=== PATIENT | male | born 1965 | race Caucasian/White ===

== ENCOUNTER 2016-05-20 05:48 | Inpatient (IN) | payer OTHER ==
[2016-05-20] MEDS ORDERED: NS 1000 ML 1,000 ML ONE ×2 (05:53→07:10)
[2016-05-20] MEDS ORDERED: TORADOL 30 MG VIAL ONE (05:54)
[2016-05-20] MEDS ORDERED: TORADOL 30 MG VIAL IVP ONE (05:56)
[2016-05-20] MEDS ORDERED: NS 1000 ML 1,000 ML IV ONE ×2 (05:56→07:10)
[2016-05-20 05:57] VITALS: BMI 25.0
--- NOTE | 2016-05-20 06:03 | DR.GENAD ---
HPI - PCP Primary Care Physician: mayela - HPI Comment HPI Comment: PATIENT STARTED HAVING RIGHT FLANK PAIN YESTERDAY WITH HEMATURIA. PAIN IMPROVE. SEVERE RIGHT FLANK PAIN STARTED 2 HRS AGO. NO FEVER. NO TRAUMA. HISTORY KIDNEY STONE. LAST EPISODE 5 YEARS AGO. - Complaint/Symptoms Chief Complaint Doctors Comments: RIGHT FLANK PAIN TIMES ONE DAY. Chief Complaint:: rt flank pain since yesterday-hx of kidney stones - Nurses notes reviewed Nurses Notes Review: Yes - Source History Provided: Patient, Family Member - Mode of Arrival Mode of Arrival: Ambulatory - Timing Onset of Chief Complaint: 05/19/16 - Duration Duration: Constant Duration: Hours - Severity Severity: Severe PMH - PMH Past Medical History: Yes Past Medical History: Kidney Stones Past Medical History Comment: kidney stones Past Surgical History: Yes Surgical History: Ortho Surgery Past Surgical History Comment: rt acl repair - Family History History of Family Medical Conditions: No - infectious screening In the last 2 months have you had wt loss of >10#?: NO Have you had fever, night sweats or hemotysis?: No Have you traveled outside the country in the last 6 months?: No Isolation: Standard ROS - Review of Systems Constitutional: No Symptoms Reported Eyes: No Symptoms Reported ENTM: No Symptoms Reported Respiratoy: No Symptoms Reported Cardiovascular: No Symptoms Reported Gastrointestinal/Abdominal: No Symptoms Reported Genitourinary: Hematuria Neurological: No Symptoms Reported Musculoskeletal: Back Pain (RT FLANK), Back (RT FLANK) Integumentary: No Symptoms Reported Hematologic/Lymphatic: No Symptoms Reported Endocrine: No Symptoms Reported All Other Systems: Reviewed and Negative PE - Vital Signs Vitals: Temperature 97.6 F Pulse Rate 51 Respiratory Rate 20 Blood Pressure [Left Arm] 145/95 Blood Pressure 142/86 O2 Sat by Pulse Oximetry 99 - General Limitations: No Limitations General Appearance: Alert - Head Head Exam: Normal Inspection - ENT ENT Exam: Normal External Ear Exam External Ear Exam: Normal External Inspection TM/Canal Exam: Bilateral Normal Nose Exam: Normal Nose Exam Mouth Exam: Normal Inspection Throat Exam: Normal Inspection - Neck Neck Exam: Trachea Midline - Chest Chest Inspection: Symmetric Chest Wall Rise - Respiratory Respiratory Exam: Normal Lung Sounds Bilat Respiratory Exam: Bilateral Clear to Auscultation - Cardiovascular Cardiovascular Exam: Regular Rate, Normal Rhythm, Normal Heart Sounds - Abdominal Exam Abdominal Exam: Normal Bowel Sounds, Soft. negative: Tenderness - Extremities Extremities Exam: Normal Inspection - Back Back Exam: (R) CVA Tenderness - Neurologic Neurological Exam: Alert, Oriented X3 - Psychiatric Psychiatric Exam: Anxious - Skin Skin Exam: Normal Color MDM - Additional Information Additional Information Obtained From: Family - Differential Diagnosis Differential Diagnosis: RIGHT FLANK PAIN, HEMATURIA Course - Treatment Treatment: SEE ORDERS - Consultation Consultation Comments: patient discuss with dr. jeter. he will admit patient. - Education/Counseling Education/Counseling: Patient, Education Educated On: Treatment, Diagnosis ROR - Labs Reviewed Laboratory Results Reviewed?: Yes Result Diagrams: 05/20/16 06:15 05/20/16 06:15 Laboratory: WBC 6.2 X10^3/uL (3.6-10.0) 05/20/16 06:15 RBC 5.03 X10^6/uL (4.7-6.0) 05/20/16 06:15 Hgb 15.2 g/dL (13.5-18.0) 05/20/16 06:15 Hct 43.9 % (42.0-54.0) 05/20/16 06:15 MCV 87.2 fL (80.0-100.0) 05/20/16 06:15 MCH 30.2 pg (27.0-34.0) 05/20/16 06:15 MCHC 34.6 g/dL (33.0-35.0) 05/20/16 06:15 RDW 13.6 % (11.6-16.5) 05/20/16 06:15 Plt Count 225 X10^3/uL (150.0-450.0) 05/20/16 06:15 MPV 6.9 fL (7.4-11.0) L 05/20/16 06:15 Neut % 57.4 % (42.0-75.0) 05/20/16 06:15 Lymph % 30.5 % (21.0-51.0) 05/20/16 06:15 [place] % 9.0 % (0.0-13.0) 05/20/16 06:15 Eos % 2.3 % (0.9-2.9) 05/20/16 06:15 Baso % 0.8 % (0.2-1.0) 05/20/16 06:15 Neut # 3.6 x10^3/uL (2.2-4.8) 05/20/16 06:15 Lymph # 1.9 X10^3/uL (1.3-2.9) 05/20/16 06:15 [place] # 0.6 x10^3/uL (0.3-0.8) 05/20/16 06:15 Eos # 0.1 x10^3/uL (0.0-0.2) 05/20/16 06:15 Baso # 0.1 X10^3/uL (0.0-0.1) 05/20/16 06:15 Absolute Nucleated RBC 0.0 /100WBC 05/20/16 06:15 Sodium 143 mmol/L (136-145) 05/20/16 06:15 Corrected Sodium 143 mmol/L (136-145) 05/20/16 06:15 Potassium 3.9 mmol/L (3.5-5.1) 05/20/16 06:15 Chloride 107 mmol/L (98-107) 05/20/16 06:15 Carbon Dioxide 27.4 mmol/L (21-32) 05/20/16 06:15 BUN 20 mg/dL (7-18) H 05/20/16 06:15 Creatinine 1.21 mg/dL (0.70-1.30) 05/20/16 06:15 Est GFR (MDRD) Af Amer > 60 (>60) 05/20/16 06:15 Est GFR (MDRD) Non-Af > 60 (>60) 05/20/16 06:15 Glucose 116 mg/dL (65-99) H 05/20/16 06:15 Calcium 8.3 mg/dL (8.5-10.1) L 05/20/16 06:15 Corrected Calcium TNP 05/20/16 06:15 Total Bilirubin 0.50 mg/dL (0.2-1.0) 05/20/16 06:15 AST 18 Units/L (15-37) 05/20/16 06:15 ALT 25 Units/L (12-78) 05/20/16 06:15 Alkaline Phosphatase 62 Units/L (46-116) 05/20/16 06:15 Total Protein 6.7 g/dL (6.4-8.2) 05/20/16 06:15 Albumin 3.7 g/dL (3.4-5.0) 05/20/16 06:15 Globulin 3.0 g/dL (2.5-4.5) 05/20/16 06:15 Albumin/Globulin Ratio 1.2 Ratio (1.1-2.1) 05/20/16 06:15 - XRAY XRAY Interpreted by: Radiologist XRAY Findings: report discuss with patient and his family. - Diagnosis Discharge Problem: Right kidney stone, Right flank pain, Hematuria - Discharge Plan Condition: Stable - Follow ups/Referrals - Instructions
[2016-05-20] MEDS ORDERED: ZOFRAN INJ 4 MG VIAL IVP ONE (06:20)
[2016-05-20] MEDS ORDERED: DILAUDID INJ IVP ONE (06:21)
[2016-05-20] MEDS ORDERED: DILAUDID INJ ONE (06:22)
[2016-05-20] MEDS ORDERED: ZOFRAN INJ 4 MG VIAL ONE (06:22)
--- NOTE | 2016-05-20 06:38 | CT ---
EXAM: CT ABDOMEN AND PELVIS WITHOUT CONTRAST INDICATION: Right flank pain COMPARISION: No priors available for comparison TECHNIQUE: Axial CT examination of the abdomen and pelvis was performed without intravenous contrast. Coronal a nd sagittal reconstructions were created using the axial data. FINDINGS: The lung bases are clear. The liver, spleen, pancreas, adrenal glands, and gallbladder are normal. T here is a 4 mm stone in the right UVJ causing mild right hydronephrosis and hydroureter. There is a 1 mm nonobstructing left renal calculus. There is no evidence of biliary ductal dilatation. The aort a and inferior vena cava are normal in caliber. The bowel loops are nonobstructed. No abnormal mass, lymphadenopathy, or fluid collection. Urinary bladder is normal. The regional skeleton is intact. IMPRESSION: There is a 4 mm stone in the right UVJ causing mild right hydronephrosis and hydroureter. There is a nonobstructing left renal calculus. Reported By:
[2016-05-20 06:41] LABS: BASOPHILS # (AUTO) 0.1 X10^3/uL (0.0-0.1); BASOPHILS % (AUTO) 0.8 % (0.2-1.0); EOSINOPHILS # (AUTO) 0.1 x10^3/uL (0.0-0.2); EOSINOPHILS % (AUTO) 2.3 % (0.9-2.9); HEMATOCRIT 43.9 % (42.0-54.0); HEMOGLOBIN 15.2 g/dL (13.5-18.0); LYMPHOCYTES # (AUTO) 1.9 X10^3/uL (1.3-2.9); LYMPHOCYTES % (AUTO) 30.5 % (21.0-51.0); MEAN CORPUSCULAR HEMOGLOBIN 30.2 pg (27.0-34.0); MEAN CORPUSCULAR HGB CONC 34.6 g/dL (33.0-35.0); MEAN CORPUSCULAR VOLUME 87.2 fL (80.0-100.0); MEAN PLATELET VOLUME 6.9 fL (7.4-11.0); MONOCYTES # (AUTO) 0.6 x10^3/uL (0.3-0.8); NEUTROPHILS # (AUTO) 3.6 x10^3/uL (2.2-4.8); NEUTROPHILS % (AUTO) 57.4 % (42.0-75.0); PLATELET COUNT 225 X10^3/uL (150.0-450.0); RED BLOOD COUNT 5.03 X10^6/uL (4.7-6.0); RED CELL DISTRIBUTION WIDTH 13.6 % (11.6-16.5); WHITE BLOOD COUNT 6.2 X10^3/uL (3.6-10.0)
[2016-05-20 06:48] LABS: ALANINE AMINOTRANSFERASE 25 Units/L (12-78); ALBUMIN 3.7 g/dL (3.4-5.0); ALKALINE PHOSPHATASE 62 Units/L (46-116); ASPARTATE AMINO TRANSFERASE 18 Units/L (15-37); BLOOD UREA NITROGEN 20 mg/dL (7-18); CALCIUM 8.3 mg/dL (8.5-10.1); CARBON DIOXIDE 27.4 mmol/L (21-32); CHLORIDE 107 mmol/L (98-107); COR NA(FOR HYPERGLY) 143 mmol/L (136-145); CREATININE 1.21 mg/dL (0.70-1.30); GLUCOSE 116 mg/dL (65-99); SODIUM 143 mmol/L (136-145); TOTAL PROTEIN 6.7 g/dL (6.4-8.2); eGFR BLACK RACES > 60 (>60); eGFR NON BLACK RACES > 60 (>60)
[2016-05-20] MEDS ORDERED: FLOMAX PO ONE (07:10)
[2016-05-20] MEDS ORDERED: NORCO 10/325 TAB ONE (07:19)
[2016-05-20] MEDS ORDERED: NORCO 10/325 TAB PO ONE (07:19)
[2016-05-20] MEDS: NS 1000 ML 1,000 ML IV SCH ×2 (08:10→17:52)
[2016-05-20] MEDS ORDERED: ZOFRAN INJ 4 MG VIAL IVP PRN (08:10)
[2016-05-20] MEDS ORDERED: DILAUDID IVP ONE (08:11)
[2016-05-20] MEDS: DILAUDID INJ IVP PRN ×3 (08:18→16:30)
[2016-05-20 09:20] LABS: BILIRUBIN,URINE NEGATIVE (NEGATIVE); BLOOD/HEMOGLOBIN,URINE 5+ (NEGATIVE); GLUCOSE, URINE NEGATIVE (NEGATIVE); KETONES,URINE NEGATIVE (NEGATIVE); LEUKOCYTE ESTERASE ,URINE NEGATIVE (NEGATIVE); NITRITES,URINE NEGATIVE (NEGATIVE); PROTEIN,URINE NEGATIVE (NEGATIVE); UROBILINOGEN,URINE NORMAL (NORMAL)
[2016-05-20 09:32] LABS: AMORPHOUS SEDIMENT,UR 1+ /HPF (NEGATIVE); APPEARANCE,URINE CLEAR (CLEAR); BACTERIA,URINE NEGATIVE /HPF (NEGATIVE); COLOR,URINE YELLOW (YELLOW); SQUAMOUS EPITHELIAL CELL,UR RARE /HPF (NEGATIVE)
[2016-05-20] MEDS: TORADOL 30 MG VIAL IVP PRN (20:26)
[2016-05-21] MEDS: DILAUDID INJ IVP PRN ×2 (00:11→13:48)
[2016-05-21] MEDS: NS 1000 ML 1,000 ML IV SCH ×3 (01:21→19:38)
[2016-05-21 06:28] LABS: BASOPHILS % (AUTO) 0.5 % (0.2-1.0); EOSINOPHILS # (AUTO) 0.1 x10^3/uL (0.0-0.2); EOSINOPHILS % (AUTO) 2.1 % (0.9-2.9); HEMATOCRIT 40.8 % (42.0-54.0); HEMOGLOBIN 14.2 g/dL (13.5-18.0); LYMPHOCYTES # (AUTO) 1.3 X10^3/uL (1.3-2.9); LYMPHOCYTES % (AUTO) 23.1 % (21.0-51.0); MEAN CORPUSCULAR HEMOGLOBIN 30.3 pg (27.0-34.0); MEAN CORPUSCULAR HGB CONC 34.7 g/dL (33.0-35.0); MEAN CORPUSCULAR VOLUME 87.2 fL (80.0-100.0); MEAN PLATELET VOLUME 7.1 fL (7.4-11.0); MONOCYTES # (AUTO) 0.4 x10^3/uL (0.3-0.8); MONOCYTES % (AUTO) 7.6 % (0.0-13.0); NEUTROPHILS # (AUTO) 3.8 x10^3/uL (2.2-4.8); NEUTROPHILS % (AUTO) 66.7 % (42.0-75.0); PLATELET COUNT 187 X10^3/uL (150.0-450.0); RED BLOOD COUNT 4.68 X10^6/uL (4.7-6.0); RED CELL DISTRIBUTION WIDTH 13.5 % (11.6-16.5); WHITE BLOOD COUNT 5.7 X10^3/uL (3.6-10.0)
[2016-05-21 06:42] LABS: ALANINE AMINOTRANSFERASE 24 Units/L (12-78); ALBUMIN 3.5 g/dL (3.4-5.0); ALKALINE PHOSPHATASE 60 Units/L (46-116); ASPARTATE AMINO TRANSFERASE 19 Units/L (15-37); BLOOD UREA NITROGEN 12 mg/dL (7-18); CALCIUM 8.2 mg/dL (8.5-10.1); CARBON DIOXIDE 29.9 mmol/L (21-32); CHLORIDE 106 mmol/L (98-107); CREATININE 1.09 mg/dL (0.70-1.30); GLUCOSE 93 mg/dL (65-99); SODIUM 142 mmol/L (136-145); TOTAL PROTEIN 6.3 g/dL (6.4-8.2); eGFR BLACK RACES > 60 (>60); eGFR NON BLACK RACES > 60 (>60)
[2016-05-21] MEDS: TORADOL 30 MG VIAL IVP PRN (08:14)
[2016-05-21] MEDS: FLOMAX PO SCH (08:14)
--- NOTE | 2016-05-21 14:25 | CT ---
HISTORY: Abdominal pain, right flank pain Study: CT abdomen and pelvis without contrast Comparison: 05/20/2016 Technique: Multiple axial images of the abdomen and pelvis were obtained without IV contrast. Oral contrast wa s not administered. Dose reduction techniques including Automated Exposure Control (AEC) and adjustm ent of mA and kV were utilized. Findings: The visualized portions of the lung bases are unremarkable. There are small hypodense lesions again seen in the posterior segment of the right hepatic lobe that may represent cysts. The unenhanced sp duglas, pancreas and adrenal glands are within normal limits. There is a stable 4 mm stone at the righ t UVJ causing mild hydronephrosis. There are bilateral nonobstructing renal calculi. No free intraperitoneal air. No evidence of intestinal obstruction or inflammation. Normal appendix. No significant free fluid. Normal urinary bladder. The soft tissues and osseous structures are unremarkable. The vascular structures are unremarkable. No pathologically enlarged lymph nodes are identified. IMPRESSION: 1. No significant change from yesterday's exam. Stable 4 mm stone at the right UVJ causing mild hydr onephrosis. 2. Bilateral nephrolithiasis. Reported By:
--- NOTE | 2016-05-21 16:42 | DR.H&P ---
H&P - History & Physical for Day of: H&P Date: 05/20/16 - Chief Complaint Chief Complaint: RIGHT FLANK PAIN - Allergies Allergies/Adverse Reactions: Allergies Allergy/AdvReac Type Severity Reaction Status Date / Time Prochlorperazine Allergy Unknown Verified 06/22/12 01:54 [From Compazine] - History of Present Illness History of Present Illness: THIS IS A 51 YEAR OLD MALE, WHO IS A PATIENT OF OURS. HE PRESENTS TO THE EMERGENCY ROOM WITH COMPLAINTS OF RIGHT FLANK PAIN WITH HEMATURIA SINCE YESTERDAY. PATIENT HAS A HISTORY SIGNIFICANT FOR RENAL CALCULI. PATIENT RATES PAIN A 10 ON A 1-TO-10 PAIN SCALE AND DESCRIBES PAIN SHARP, RADIATING, AND THROBBING THAT STARTED ONE DAY AGO. PATIENT IS NOTED TO BE VERY ANXIOUS. ASSOCIATED SYMPTOMS INCLUDE BACK PAIN, HEMATURIA, AND RIGHT FLANK PAIN. PATIENT ALSO REPORTS NAUSEA. LABS AND CT OBTAINED. CBC WNL. CMP WNL EXCEPT: BUN 20, GLUCOSE 116, CALCIUM 8.3. URINALYSIS ABNORMALS: OCCULT BLOOD 5+, RBC 1-5, AMORPHOUS SEDIMENT 1+. CT OF ABD/PELVIS REPORTS: 4MM STONE IN THE RIGHT UVJ CAUSING MILD RIGHT HYDRONEPHROSIS AND HYDROURETER; NONOBSTRUCTING LEFT RENAL CALCULUS. WE WILL ADMIT PATIENT FOR FURTHER TREATMENT AND EVALUATION. - Past Medical History Past Medical History: Kidney Stones - Past Surgical History Surgical History: Ortho Surgery Additional Surgical History: Right ACL repair, Ankle Surgery - Family History Family Medical History: denies: Diabetes Mellitus, Cancer, [place], Coronary Artery Disease, Heart Failure, Sudden Cardiac , Hypertension - Social History Does patient currently use any type of tobacco product: No Have you used tobacco products in the last 12 months: No Type of Tobacco Use: None Does any household member use tobacco: No Alcohol Use: None Drug Use: None - Medications Home Medications: Aspirin [ASPIRIN 325 MG *] 1 tab PO DAILY 05/20/16 [History Confirmed 05/20/16] Montelukast Sodium [SINGULAIR TAB 10 MG *] 1 tab PO DAILY 05/20/16 [History Confirmed 05/20/16] - Review of Systems Constitutional: No Symptoms Reported. denies: Chills, Sweats, Weakness, Malaise Eyes: No Symptoms Reported. denies: Pain, Vision Change, Conjunctivae Inflammation, Eyelid Inflammation, Redness ENT: No Symptoms Reported. denies: Nose Pain, Nose Discharge, Nose Congestion, Mouth Pain, Mouth Swelling, Throat Pain, Throat Swelling Respiratory: No Symptoms Reported. denies: Cough, Shortness of Breath, Hemoptysis, SOB with Excertion, Pleuritic Pain, Sputum, Wheezing Cardiovascular: No Symptoms Reported. denies: Chest Pain, Palpitations, Orthopnea, Paroxysmal Noc. Dyspnea, Edema, Light Headedness Gastrointestinal: No Symptoms Reported. denies: Nausea, Vomiting, Abdominal Pain, Diarrhea, Constipation, Melena, Hematochezia Genitourinary: Dysuria, Frequency, Hematuria Musculoskeletal: No Symptoms Reported. denies: Shoulder Pain, Arm Pain, Back Pain, Hand Pain, Leg Pain, Foot Pain, Neck Pain Skin: No Symptoms Reported. denies: Rash, Lesions, Jaundice, Bruising, Wound, Ecchymosis Neurological: No Symptoms Reported. denies: Weakness, Numbness, Incoordination , Change in Speech, Confusion, Seizures - Physical Exam Vital Signs: Temperature 98.9 F Pulse Rate [Radial] 48 Respiratory Rate 20 Blood Pressure [Left Arm] 127/74 O2 Sat by Pulse Oximetry 100 Oriented: Normal, Time, Person, Place Eyes: Normal. negative: Blurred Vision, Diplopia, Discharge, Pain, Redness, Photophobia Ear: Normal. negative: Swelling, Ecchymosis, Hemotypanum, Abrasion, Laceration Nose: Normal. negative: Injected, Discharge, Blood Throat: Normal. negative: Tonsillar Hypertrophy, Red, Exudate Respiratory: Clear Throughout Cardiovascular: Normal. negative: Murmur, Edema : Dysuria, Hematuria, Frequency Auscultation: Bowel Sounds: Decreased. negative: Bruit Palpation: Normal. negative: Spleen Enlarged, Liver Enlarged, Mass Pulsatile Tenderness: Normal. negative: Rebound, Guarding, Rigidity Skin: Normal. negative: Diaphoresis, Wound, Bruising Musculoskeletal: Normal Psychiatric: Normal Mood Description: Calm, Appropriate Affect: Normal Speech Pattern: Clear, Appropriate - Assessment/Plan (1) Intractable pain Status: Acute Plan: ADMIT PATIENT, START IV TORADOL, IV DILAUDID, IV FLUIDS, IV ZOFRAN, FLOMAX , MONITOR. (2) Right flank pain Status: Acute Plan: ABOVE. (3) Right kidney stone Status: Acute Plan: ABOVE. (4) Hematuria Status: Acute Plan: ABOVE.
--- NOTE | 2016-05-21 17:16 | PCM.PROG ---
Progress Note - Progress Note for Day of Date: 05/21/16 - Subjective Subjective: PATIENT CONTINUES TO REPORT RIGHT FLANK PAIN, HOWEVER; HE REPORTS PAIN IS IMPROVED WITH IV PAIN MEDICATION. HE CONTINUES WITH TENDERNESS TO RIGHT FLANK AREA. HE IS STRAINING URINE AND HAS COLLECTED SOME GRAVEL BUT NO STONES ARE NOTED. CBC WNL EXCEPT: HCT 40.8. CMP WNL EXCEPT: CALCIUM 8.2, TOT PROTEIN 6.3. WE WILL OBTAIN A FOLLOW UP CT OF ABD/PELVIS TODAY AND CONTINUE IV FLUIDS WITH IV PAIN MEDICATIONS. WE WILL FOLLOW UP IN AM WITH LABS. - Past Medical Family Social History Past Med/Fam/Surg Hx: No changes since H&P Allergies: Allergies Prochlorperazine [From Compazine] Allergy (Unknown, Verified 06/22/12 01:54) - Review of Systems ROS: No change since H&P - Vital Signs and I&O's Vital Signs: Temperature 97.5 F Pulse Rate [Radial] 52 Respiratory Rate 18 Blood Pressure [Left Arm] 130/76 O2 Sat by Pulse Oximetry 98 Intake and Output: Intake & Output 05/19/16 05/20/16 05/21/16 05/22/16 11:59 11:59 11:59 11:59 Intake Total 4145 1520 Balance 4145 1520 - Physical Exam Oriented: Normal, Time, Person, Place Eyes: Normal. negative: Blurred Vision, Diplopia, Discharge, Pain, Redness, Photophobia Ear: Normal. negative: Swelling, Ecchymosis, Hemotypanum, Abrasion, Laceration Nose: Normal. negative: Injected, Discharge, Blood Throat: Normal. negative: Tonsillar Hypertrophy, Red, Exudate Respiratory: Normal Cardiovascular: Normal. negative: Murmur, Edema : Dysuria, Hematuria, Frequency Auscultation: Bowel Sounds: Decreased. negative: Bruit Palpation: Normal. negative: Spleen Enlarged, Liver Enlarged, Mass Pulsatile Tenderness: Normal. negative: Rebound, Guarding, Rigidity Skin: Normal. negative: Diaphoresis, Wound, Bruising Musculoskeletal: Normal Psychiatric: Normal Mood Description: Calm, Appropriate Affect: Normal Speech Pattern: Clear, Appropriate - Laboratory and Diagnostics Result Diagrams: 05/21/16 05:13 05/21/16 05:13 Labs: Laboratory WBC 5.7 X10^3/uL (3.6-10.0) 05/21/16 05:13 RBC 4.68 X10^6/uL (4.7-6.0) L 05/21/16 05:13 Hgb 14.2 g/dL (13.5-18.0) 05/21/16 05:13 Hct 40.8 % (42.0-54.0) L 05/21/16 05:13 MCV 87.2 fL (80.0-100.0) 05/21/16 05:13 MCH 30.3 pg (27.0-34.0) 05/21/16 05:13 MCHC 34.7 g/dL (33.0-35.0) 05/21/16 05:13 RDW 13.5 % (11.6-16.5) 05/21/16 05:13 Plt Count 187 X10^3/uL (150.0-450.0) 05/21/16 05:13 MPV 7.1 fL (7.4-11.0) L 05/21/16 05:13 Neut % 66.7 % (42.0-75.0) 05/21/16 05:13 Lymph % 23.1 % (21.0-51.0) 05/21/16 05:13 [place] % 7.6 % (0.0-13.0) 05/21/16 05:13 Eos % 2.1 % (0.9-2.9) 05/21/16 05:13 Baso % 0.5 % (0.2-1.0) 05/21/16 05:13 Neut # 3.8 x10^3/uL (2.2-4.8) 05/21/16 05:13 Lymph # 1.3 X10^3/uL (1.3-2.9) 05/21/16 05:13 [place] # 0.4 x10^3/uL (0.3-0.8) 05/21/16 05:13 Eos # 0.1 x10^3/uL (0.0-0.2) 05/21/16 05:13 Baso # 0.0 X10^3/uL (0.0-0.1) 05/21/16 05:13 Absolute Nucleated RBC 0.0 /100WBC 05/21/16 05:13 Sodium 142 mmol/L (136-145) 05/21/16 05:13 Corrected Sodium TNP 05/21/16 05:13 Potassium 4.2 mmol/L (3.5-5.1) 05/21/16 05:13 Chloride 106 mmol/L (98-107) 05/21/16 05:13 Carbon Dioxide 29.9 mmol/L (21-32) 05/21/16 05:13 BUN 12 mg/dL (7-18) 05/21/16 05:13 Creatinine 1.09 mg/dL (0.70-1.30) 05/21/16 05:13 Est GFR (MDRD) Af Amer > 60 (>60) 05/21/16 05:13 Est GFR (MDRD) Non-Af > 60 (>60) 05/21/16 05:13 Glucose 93 mg/dL (65-99) 05/21/16 05:13 Calcium 8.2 mg/dL (8.5-10.1) L 05/21/16 05:13 Corrected Calcium TNP 05/21/16 05:13 Total Bilirubin 0.30 mg/dL (0.2-1.0) 05/21/16 05:13 AST 19 Units/L (15-37) 05/21/16 05:13 ALT 24 Units/L (12-78) 05/21/16 05:13 Alkaline Phosphatase 60 Units/L (46-116) 05/21/16 05:13 Total Protein 6.3 g/dL (6.4-8.2) L 05/21/16 05:13 Albumin 3.5 g/dL (3.4-5.0) 05/21/16 05:13 Globulin 2.8 g/dL (2.5-4.5) 05/21/16 05:13 Albumin/Globulin Ratio 1.3 Ratio (1.1-2.1) 05/21/16 05:13 Specimen Type Clean catch urine 05/20/16 08:51 Urine Color Yellow (YELLOW) 05/20/16 08:51 Urine Appearance Clear (CLEAR) 05/20/16 08:51 Urine pH 5.0 (5.0 - 8.0) 05/20/16 08:51 Ur Specific [place] 1.015 (1.000-1.030) 05/20/16 08:51 Urine Protein Negative (NEGATIVE) 05/20/16 08:51 Urine Glucose (UA) Negative (NEGATIVE) 05/20/16 08:51 Urine Ketones Negative (NEGATIVE) 05/20/16 08:51 Urine Occult Blood 5+ (NEGATIVE) 05/20/16 08:51 Urine Nitrite Negative (NEGATIVE) 05/20/16 08:51 Urine Bilirubin Negative (NEGATIVE) 05/20/16 08:51 Urine Urobilinogen Normal (NORMAL) 05/20/16 08:51 Ur Leukocyte Esterase Negative (NEGATIVE) 05/20/16 08:51 Urine RBC 1-5 /HPF (NEGATIVE) 05/20/16 08:51 Urine WBC None seen /HPF (NEGATIVE) 05/20/16 08:51 Ur Squamous Epith Cells Rare /HPF (NEGATIVE) 05/20/16 08:51 Amorphous Sediment 1+ /HPF (NEGATIVE) 05/20/16 08:51 Urine Bacteria Negative /HPF (NEGATIVE) 05/20/16 08:51 Ur Culture Indicated? No/not indicated 05/20/16 08:51 - Plan (1) Intractable pain Status: Acute Plan: CONTINUE IV TORADOL, IV DILAUDID, IV FLUIDS, IV ZOFRAN, FLOMAX, MONITOR. (2) Right flank pain Status: Acute Plan: ABOVE. (3) Right kidney stone Status: Acute Plan: ABOVE. (4) Hematuria Status: Acute Plan: ABOVE.
[2016-05-22] MEDS: NS 1000 ML 1,000 ML IV SCH ×2 (00:02→09:23)
[2016-05-22 05:21] LABS: BASOPHILS % (AUTO) 0.5 % (0.2-1.0); EOSINOPHILS # (AUTO) 0.2 x10^3/uL (0.0-0.2); HEMATOCRIT 41.1 % (42.0-54.0); LYMPHOCYTES # (AUTO) 1.5 X10^3/uL (1.3-2.9); LYMPHOCYTES % (AUTO) 22.5 % (21.0-51.0); MEAN CORPUSCULAR HEMOGLOBIN 30.1 pg (27.0-34.0); MEAN CORPUSCULAR HGB CONC 34.2 g/dL (33.0-35.0); MEAN CORPUSCULAR VOLUME 87.9 fL (80.0-100.0); MEAN PLATELET VOLUME 7.3 fL (7.4-11.0); MONOCYTES # (AUTO) 0.5 x10^3/uL (0.3-0.8); MONOCYTES % (AUTO) 8.1 % (0.0-13.0); NEUTROPHILS # (AUTO) 4.3 x10^3/uL (2.2-4.8); NEUTROPHILS % (AUTO) 65.9 % (42.0-75.0); PLATELET COUNT 180 X10^3/uL (150.0-450.0); RED BLOOD COUNT 4.67 X10^6/uL (4.7-6.0); RED CELL DISTRIBUTION WIDTH 13.7 % (11.6-16.5); WHITE BLOOD COUNT 6.6 X10^3/uL (3.6-10.0)
[2016-05-22 05:30] LABS: ALANINE AMINOTRANSFERASE 21 Units/L (12-78); ALBUMIN 3.4 g/dL (3.4-5.0); ALKALINE PHOSPHATASE 61 Units/L (46-116); ASPARTATE AMINO TRANSFERASE 15 Units/L (15-37); BLOOD UREA NITROGEN 14 mg/dL (7-18); CALCIUM 8.3 mg/dL (8.5-10.1); CARBON DIOXIDE 30.2 mmol/L (21-32); CHLORIDE 108 mmol/L (98-107); CREATININE 1.08 mg/dL (0.70-1.30); GLUCOSE 106 mg/dL (65-99); SODIUM 143 mmol/L (136-145); TOTAL PROTEIN 6.2 g/dL (6.4-8.2); eGFR BLACK RACES > 60 (>60); eGFR NON BLACK RACES > 60 (>60)
[2016-05-22] MEDS: TORADOL 30 MG VIAL IVP PRN (08:30)
[2016-05-22] MEDS: FLOMAX PO SCH (09:23)
[2016-05-22] MEDS: PROCARDIA XL PO SCH (10:30)
[2016-05-23] MEDS: NS 1000 ML 1,000 ML IV SCH ×4 (00:47→18:11)
[2016-05-23 06:10] LABS: ALANINE AMINOTRANSFERASE 17 Units/L (12-78); ALBUMIN 3.5 g/dL (3.4-5.0); ALKALINE PHOSPHATASE 69 Units/L (46-116); ASPARTATE AMINO TRANSFERASE 17 Units/L (15-37); BLOOD UREA NITROGEN 15 mg/dL (7-18); CALCIUM 8.6 mg/dL (8.5-10.1); CARBON DIOXIDE 28.3 mmol/L (21-32); CHLORIDE 106 mmol/L (98-107); COR NA(FOR HYPERGLY) 140 mmol/L (136-145); CREATININE 0.91 mg/dL (0.70-1.30); GLUCOSE 116 mg/dL (65-99); SODIUM 140 mmol/L (136-145); TOTAL PROTEIN 6.5 g/dL (6.4-8.2); eGFR BLACK RACES > 60 (>60); eGFR NON BLACK RACES > 60 (>60)
[2016-05-23 06:23] LABS: BASOPHILS # (AUTO) 0.1 X10^3/uL (0.0-0.1); BASOPHILS % (AUTO) 0.7 % (0.2-1.0); EOSINOPHILS # (AUTO) 0.2 x10^3/uL (0.0-0.2); EOSINOPHILS % (AUTO) 3.1 % (0.9-2.9); HEMATOCRIT 41.6 % (42.0-54.0); HEMOGLOBIN 14.4 g/dL (13.5-18.0); LYMPHOCYTES # (AUTO) 1.5 X10^3/uL (1.3-2.9); LYMPHOCYTES % (AUTO) 21.1 % (21.0-51.0); MEAN CORPUSCULAR HEMOGLOBIN 30.1 pg (27.0-34.0); MEAN CORPUSCULAR HGB CONC 34.6 g/dL (33.0-35.0); MEAN PLATELET VOLUME 7.3 fL (7.4-11.0); MONOCYTES # (AUTO) 0.6 x10^3/uL (0.3-0.8); MONOCYTES % (AUTO) 8.9 % (0.0-13.0); NEUTROPHILS # (AUTO) 4.6 x10^3/uL (2.2-4.8); NEUTROPHILS % (AUTO) 66.2 % (42.0-75.0); PLATELET COUNT 190 X10^3/uL (150.0-450.0); RED BLOOD COUNT 4.78 X10^6/uL (4.7-6.0); RED CELL DISTRIBUTION WIDTH 13.6 % (11.6-16.5)
[2016-05-23] MEDS: TORADOL 30 MG VIAL IVP PRN (07:37)
[2016-05-23] MEDS: FLOMAX PO SCH (10:16)
[2016-05-23] MEDS: PROCARDIA XL PO SCH (10:17)
[2016-05-23] MEDS: DILAUDID INJ IVP PRN ×2 (15:54)
[2016-05-24 03:44] LABS: BASOPHILS # (AUTO) 0.1 X10^3/uL (0.0-0.1); BASOPHILS % (AUTO) 1.1 % (0.2-1.0); EOSINOPHILS # (AUTO) 0.2 x10^3/uL (0.0-0.2); HEMATOCRIT 43.1 % (42.0-54.0); HEMOGLOBIN 14.6 g/dL (13.5-18.0); LYMPHOCYTES # (AUTO) 1.4 X10^3/uL (1.3-2.9); LYMPHOCYTES % (AUTO) 21.2 % (21.0-51.0); MEAN CORPUSCULAR VOLUME 88.4 fL (80.0-100.0); MEAN PLATELET VOLUME 7.3 fL (7.4-11.0); MONOCYTES # (AUTO) 0.5 x10^3/uL (0.3-0.8); NEUTROPHILS # (AUTO) 4.5 x10^3/uL (2.2-4.8); NEUTROPHILS % (AUTO) 66.7 % (42.0-75.0); PLATELET COUNT 188 X10^3/uL (150.0-450.0); RED BLOOD COUNT 4.87 X10^6/uL (4.7-6.0); RED CELL DISTRIBUTION WIDTH 13.8 % (11.6-16.5); WHITE BLOOD COUNT 6.7 X10^3/uL (3.6-10.0)
[2016-05-24 03:59] LABS: ALANINE AMINOTRANSFERASE 22 Units/L (12-78); ALBUMIN 3.4 g/dL (3.4-5.0); ALKALINE PHOSPHATASE 66 Units/L (46-116); ASPARTATE AMINO TRANSFERASE 17 Units/L (15-37); BLOOD UREA NITROGEN 13 mg/dL (7-18); CALCIUM 8.3 mg/dL (8.5-10.1); CARBON DIOXIDE 28.6 mmol/L (21-32); CHLORIDE 107 mmol/L (98-107); CREATININE 0.98 mg/dL (0.70-1.30); GLUCOSE 109 mg/dL (65-99); SODIUM 142 mmol/L (136-145); TOTAL PROTEIN 6.3 g/dL (6.4-8.2); eGFR BLACK RACES > 60 (>60); eGFR NON BLACK RACES > 60 (>60)
[2016-05-24] MEDS: TORADOL 30 MG VIAL IVP PRN (05:40)
[2016-05-24] MEDS: NS 1000 ML 1,000 ML IV SCH ×2 (05:42→10:06)
--- NOTE | 2016-05-24 06:34 | CT ---
HISTORY: Right flank pain, right ureteral calculus Study: CT abdomen pelvis without contrast Comparison: May 21, 2016, May 21, 2015 Technique: Axial non contrast images with coronal and sagittal reformats. Dose reduction procedures were used with MA/kv adjusted for body size. Findings: The lung bases remain clear. The liver, spleen, adrenal glands, and pancreas are within normal limit s to the limitations of an unenhanced examination. Benign hepatic cysts are present. No opaque stone s are visible within the gallbladder. The left kidney is unobstructed. There is a 2 millimeter nonob structing left upper pole renal calculus present. No ureteral calculus is identified. There is minim al right-sided hydroureteronephrosis proximal to a 5 millimeter minimally obstructing distal right u reteral calculus located at the right ureterovesical junction and unchanged when compared with the p rior examination. A 1.5 millimeter nonobstructing right lower pole renal calculus is present. No int raperitoneal or retroperitoneal lymphadenopathy of significance is identified. There are no findings suggestive of diverticulitis or colitis. Examination of the pelvis demonstrated no evidence for pel dayana masses, pelvic fluid, or pelvic lymphadenopathy. No significant skeletal abnormality is identifi ed. IMPRESSION: No significant change from the prior examination Reported By:
[2016-05-24] MEDS: FLOMAX PO SCH (09:58)
[2016-05-24] MEDS: PROCARDIA XL PO SCH (09:59)
[2016-05-24] MEDS: DILAUDID INJ IVP PRN (10:07)
[2016-05-24 13:07] VITALS: BP 142/77
== END 2016-05-24 12:45 | disposition home or self-care (01) | DRG 694 ==
LOC: ER 05:55 → OBS 09:00
PROVIDERS: ADMIT Internal Medicine; ATTEND Internal Medicine
DX: N20.0 Calculus of kidney (principal); N13.39 Other hydronephrosis; N13.4 Hydroureter; R31.9 Hematuria, unspecified; R10.84 Generalized abdominal pain; Z87.442 Personal history of urinary calculi
CPT/HCPCS: 36415; 74176; 80053; 81001; 85025; 94760; 96365; 96367; 96374; 96375; 99284; A4222; J1170; J1885; J2405

== ENCOUNTER 2016-06-08 13:41 | Observation (INO) | payer OTHER ==
[2016-06-08] MEDS ORDERED: PHENERGAN INJ 25 MG ONE (13:43)
[2016-06-08] MEDS ORDERED: DILAUDID INJ ONE ×2 (13:43→14:23)
[2016-06-08] MEDS ORDERED: PHENERGAN INJ 25 MG IV ONE (13:44)
[2016-06-08] MEDS ORDERED: DILAUDID INJ IVP ONE ×2 (13:44→14:27)
[2016-06-08] MEDS ORDERED: NS 1000 ML 1,000 ML ONE (13:45)
[2016-06-08] MEDS ORDERED: NS 1000 ML 1,000 ML IV ONE (13:45)
--- NOTE | 2016-06-08 13:46 | DR.GENAD ---
HPI - PCP Primary Care Physician: JOE - HPI Comment HPI Comment: PATIENT HAVE HISTORY KIDNEY STONE. POST RECENT LITHOTRIPSY. SUDDEN ONSET OF LEFT FLANK PAIN WITH NAUSEA. NO FEVER OR DYSURIA. - Complaint/Symptoms Chief Complaint Doctors Comments: LEFT FLANK PAIN LESS THAN ONE HOUR AGO. Chief Complaint:: PT C/O LT FLANK PAIN THAT STARTED 10 MINS AGO. - Nurses notes reviewed Nurses Notes Review: Yes - Source History Provided: Patient - Mode of Arrival Mode of Arrival: Ambulatory - Timing Onset of Chief Complaint: 06/08/16 Came on: Suddenly - Duration Duration: Constant Duration: Minutes - Severity Severity: Moderate PMH - PMH Past Medical History: Yes Past Medical History: Kidney Stones Past Surgical History: Yes Surgical History: Ortho Surgery, Lithotripsy - Family History History of Family Medical Conditions: No - Social History Does any household member use tobacco: No Alcohol Use: None Do you use any recreational Drugs:: No Lives With: Family Lives Where: Home - infectious screening In the last 2 months have you had wt loss of >10#?: NO Have you had fever, night sweats or hemotysis?: No Have you traveled outside the country in the last 6 months?: No Isolation: Standard ROS - Review of Systems Constitutional: No Symptoms Reported Eyes: No Symptoms Reported ENTM: No Symptoms Reported Respiratoy: No Symptoms Reported Cardiovascular: No Symptoms Reported Gastrointestinal/Abdominal: Nausea Genitourinary: No Symptoms Reported Neurological: No Symptoms Reported Musculoskeletal: Back Pain, Other (LT FLANK PAIN) Integumentary: No Symptoms Reported Hematologic/Lymphatic: No Symptoms Reported Endocrine: No Symptoms Reported All Other Systems: Reviewed and Negative PE - Vital Signs Vitals: Temperature 97.8 F Pulse Rate 51 Respiratory Rate 20 Blood Pressure [Right Arm] 142/77 Blood Pressure [Left Arm] 117/65 Blood Pressure 141/93 O2 Sat by Pulse Oximetry 98 - General Limitations: No Limitations General Appearance: Alert - Head Head Exam: Normal Inspection - Eyes Eye exam: Normal Appearance - ENT ENT Exam: Normal External Ear Exam External Ear Exam: Normal External Inspection TM/Canal Exam: Bilateral Normal Nose Exam: Normal Nose Exam Mouth Exam: Normal Inspection Throat Exam: Normal Inspection - Neck Neck Exam: Normal Inspection - Chest Chest Inspection: Symmetric Chest Wall Rise - Respiratory Respiratory Exam: Normal Lung Sounds Bilat Respiratory Exam: Bilateral Clear to Auscultation - Cardiovascular Cardiovascular Exam: Regular Rate, Normal Rhythm, Normal Heart Sounds - Abdominal Exam Abdominal Exam: Normal Bowel Sounds, Soft. negative: Tenderness - Extremities Extremities Exam: Normal Inspection - Back Back Exam: Normal Inspection, (L) CVA Tenderness - Neurologic Neurological Exam: Alert, Oriented X3 - Psychiatric Psychiatric Exam: Anxious - Skin Skin Exam: Normal Color MDM - Additional Information Additional Information Obtained From: Family - Differential Diagnosis Differential Diagnosis: KIDNEY STONE, LEFT FLANK PAIN Course - Treatment Treatment: SEE ORDERS. - Consultation Consultation Comments: DISCUSS PATIENT WITH DR. DIAZ. HE WILL ADMIT PATIENT. - Education/Counseling Education/Counseling: Patient, Family, Education Educated On: Treatment, Diagnosis ROR - Labs Reviewed Laboratory Results Reviewed?: Yes Result Diagrams: 06/09/16 04:30 06/09/16 04:30 Laboratory: WBC 7.2 X10^3/uL (3.6-10.0) 06/08/16 15:00 RBC 4.85 X10^6/uL (4.7-6.0) 06/08/16 15:00 Hgb 14.5 g/dL (13.5-18.0) 06/08/16 15:00 Hct 43.0 % (42.0-54.0) 06/08/16 15:00 MCV 88.7 fL (80.0-100.0) 06/08/16 15:00 MCH 29.9 pg (27.0-34.0) 06/08/16 15:00 MCHC 33.8 g/dL (33.0-35.0) 06/08/16 15:00 RDW 13.6 % (11.6-16.5) 06/08/16 15:00 Plt Count 220 X10^3/uL (150.0-450.0) 06/08/16 15:00 MPV 7.2 fL (7.4-11.0) L 06/08/16 15:00 Neut % 72.1 % (42.0-75.0) 06/08/16 15:00 Lymph % 17.4 % (21.0-51.0) L 06/08/16 15:00 Barbour % 7.9 % (0.0-13.0) 06/08/16 15:00 Eos % 2.1 % (0.9-2.9) 06/08/16 15:00 Baso % 0.5 % (0.2-1.0) 06/08/16 15:00 Neut # 5.2 x10^3/uL (2.2-4.8) H 06/08/16 15:00 Lymph # 1.3 X10^3/uL (1.3-2.9) 06/08/16 15:00 Barbour # 0.6 x10^3/uL (0.3-0.8) 06/08/16 15:00 Eos # 0.2 x10^3/uL (0.0-0.2) 06/08/16 15:00 Baso # 0.0 X10^3/uL (0.0-0.1) 06/08/16 15:00 Absolute Nucleated RBC 0.0 /100WBC 06/08/16 15:00 Sodium 143 mmol/L (136-145) 06/08/16 15:00 Corrected Sodium TNP 06/08/16 15:00 Potassium 3.9 mmol/L (3.5-5.1) 06/08/16 15:00 Chloride 106 mmol/L (98-107) 06/08/16 15:00 Carbon Dioxide 30.8 mmol/L (21-32) 06/08/16 15:00 BUN 26 mg/dL (7-18) H 06/08/16 15:00 Creatinine 1.22 mg/dL (0.70-1.30) 06/08/16 15:00 Est GFR (MDRD) Af Amer > 60 (>60) 06/08/16 15:00 Est GFR (MDRD) Non-Af > 60 (>60) 06/08/16 15:00 Glucose 104 mg/dL (65-99) H 06/08/16 15:00 Calcium 8.1 mg/dL (8.5-10.1) L 06/08/16 15:00 Corrected Calcium TNP 06/08/16 15:00 Total Bilirubin 0.30 mg/dL (0.2-1.0) 06/08/16 15:00 AST 19 Units/L (15-37) 06/08/16 15:00 ALT 26 Units/L (12-78) 06/08/16 15:00 Alkaline Phosphatase 65 Units/L (46-116) 06/08/16 15:00 Total Protein 6.8 g/dL (6.4-8.2) 06/08/16 15:00 Albumin 3.7 g/dL (3.4-5.0) 06/08/16 15:00 Globulin 3.1 g/dL (2.5-4.5) 06/08/16 15:00 Albumin/Globulin Ratio 1.2 Ratio (1.1-2.1) 06/08/16 15:00 Specimen Type Clean catch urine 06/08/16 15:28 Urine Color Dark yellow (YELLOW) 06/08/16 15:28 Urine Appearance Turbid (CLEAR) 06/08/16 15:28 Urine pH 6.0 (5.0 - 8.0) 06/08/16 15:28 Ur Specific Verner 1.025 (1.000-1.030) 06/08/16 15:28 Urine Protein 2+ (NEGATIVE) 06/08/16 15:28 Urine Glucose (UA) Negative (NEGATIVE) 06/08/16 15:28 Urine Ketones Negative (NEGATIVE) 06/08/16 15:28 Urine Occult Blood 5+ (NEGATIVE) 06/08/16 15:28 Urine Nitrite Negative (NEGATIVE) 06/08/16 15:28 Urine Bilirubin Negative (NEGATIVE) 06/08/16 15:28 Urine Urobilinogen Normal (NORMAL) 06/08/16 15:28 Ur Leukocyte Esterase 1+ (NEGATIVE) 06/08/16 15:28 Urine RBC Tntc /HPF (NEGATIVE) 06/08/16 15:28 Urine WBC 1 - 4 /HPF (NEGATIVE) 06/08/16 15:28 Ur Squamous Epith Cells Few /HPF (NEGATIVE) 06/08/16 15:28 Urine Bacteria Trace /HPF (NEGATIVE) 06/08/16 15:28 Urine Mucus Moderate /HPF (NEGATIVE) 06/08/16 15:28 Ur Culture Indicated? No/not indicated 06/08/16 15:28 - XRAY XRAY Interpreted by: Radiologist XRAY Findings: REPORT DISCUSS WITH PATIENT AND HIS . - Diagnosis Discharge Problem: Left flank pain, Kidney stone, Intractable pain - Discharge Plan Disposition: ADMITTED INPATIENT Condition: Stable - Follow ups/Referrals - Instructions
[2016-06-08] MEDS ORDERED: ZOFRAN INJ 4 MG VIAL ONE (14:09)
[2016-06-08] MEDS ORDERED: TORADOL 30 MG VIAL ONE (14:09)
[2016-06-08] MEDS ORDERED: ZOFRAN INJ 4 MG VIAL IVP ONE (14:11)
[2016-06-08] MEDS ORDERED: TORADOL 30 MG VIAL IVP ONE (14:11)
[2016-06-08] MEDS ORDERED: FLOMAX PO ONE (14:44)
[2016-06-08 15:23] LABS: BASOPHILS % (AUTO) 0.5 % (0.2-1.0); EOSINOPHILS # (AUTO) 0.2 x10^3/uL (0.0-0.2); EOSINOPHILS % (AUTO) 2.1 % (0.9-2.9); HEMOGLOBIN 14.5 g/dL (13.5-18.0); LYMPHOCYTES # (AUTO) 1.3 X10^3/uL (1.3-2.9); LYMPHOCYTES % (AUTO) 17.4 % (21.0-51.0); MEAN CORPUSCULAR HEMOGLOBIN 29.9 pg (27.0-34.0); MEAN CORPUSCULAR HGB CONC 33.8 g/dL (33.0-35.0); MEAN CORPUSCULAR VOLUME 88.7 fL (80.0-100.0); MEAN PLATELET VOLUME 7.2 fL (7.4-11.0); MONOCYTES # (AUTO) 0.6 x10^3/uL (0.3-0.8); MONOCYTES % (AUTO) 7.9 % (0.0-13.0); NEUTROPHILS # (AUTO) 5.2 x10^3/uL (2.2-4.8); NEUTROPHILS % (AUTO) 72.1 % (42.0-75.0); PLATELET COUNT 220 X10^3/uL (150.0-450.0); RED BLOOD COUNT 4.85 X10^6/uL (4.7-6.0); RED CELL DISTRIBUTION WIDTH 13.6 % (11.6-16.5); WHITE BLOOD COUNT 7.2 X10^3/uL (3.6-10.0)
[2016-06-08 15:32] LABS: ALANINE AMINOTRANSFERASE 26 Units/L (12-78); ALBUMIN 3.7 g/dL (3.4-5.0); ALKALINE PHOSPHATASE 65 Units/L (46-116); ASPARTATE AMINO TRANSFERASE 19 Units/L (15-37); BLOOD UREA NITROGEN 26 mg/dL (7-18); CALCIUM 8.1 mg/dL (8.5-10.1); CARBON DIOXIDE 30.8 mmol/L (21-32); CHLORIDE 106 mmol/L (98-107); CREATININE 1.22 mg/dL (0.70-1.30); GLUCOSE 104 mg/dL (65-99); SODIUM 143 mmol/L (136-145); TOTAL PROTEIN 6.8 g/dL (6.4-8.2); eGFR BLACK RACES > 60 (>60); eGFR NON BLACK RACES > 60 (>60)
--- NOTE | 2016-06-08 15:33 | CT ---
CT OF THE ABDOMEN AND PELVIS WITHOUT CONTRAST HISTORY: Right flank pain Comparison: 05/24/2016 Technique: Multiple axial images of the abdomen and pelvis were obtained from the lung bases to the pubic symph ysis without the administration of IV contrast. Dose reduction techniques including Automated Expos ure Control (AEC) and adjustment of mA and kV were utlized. Findings: The heart is normal in size. There is no pericardial effusion. Lung bases are clear without focal co nsolidation, pleural effusion or pneumothorax. The sensitivity for focal lesion detection within the solid abdominal viscera is diminished without the use of IV contrast. Liver and spleen are normal in size, and contour. Simple hepatic cyst again seen. No ductal dilitati on. Gallbladder is present. No calcified gallstones or gallbladder wall thickening. The pancreas is unremarkable. Adrenal glands are normal. Kidneys are normal in contour without hydronephrosis or nep hrolithiasis. Previously noted right UVJ stone is no longer present. No bowel obstruction or inflammation. No abnormal appearing mesenteric or retroperitoneal lymph nod es. No free fluid or fluid collections. The bladder is normal in appearance. Prostate not enlarged in. No free fluid or abnormal pelvic lymp h nodes. No aggressive osseous lesions. IMPRESSION: 1. Previously identified right UVJ stone is not seen on this examination. Reported By:
[2016-06-08 15:40] LABS: BILIRUBIN,URINE NEGATIVE (NEGATIVE); BLOOD/HEMOGLOBIN,URINE 5+ (NEGATIVE); GLUCOSE, URINE NEGATIVE (NEGATIVE); KETONES,URINE NEGATIVE (NEGATIVE); LEUKOCYTE ESTERASE ,URINE 1+ (NEGATIVE); NITRITES,URINE NEGATIVE (NEGATIVE); PROTEIN,URINE 2+ (NEGATIVE); UROBILINOGEN,URINE NORMAL (NORMAL)
[2016-06-08 15:50] LABS: APPEARANCE,URINE TURBID (CLEAR); COLOR,URINE DARK YELLOW (YELLOW)
[2016-06-08 15:51] LABS: BACTERIA,URINE TRACE /HPF (NEGATIVE); MUCUS,URINE MODERATE /HPF (NEGATIVE); RBC,URINE TNTC /HPF (NEGATIVE); SQUAMOUS EPITHELIAL CELL,UR FEW /HPF (NEGATIVE)
[2016-06-08] MEDS: DILAUDID INJ IVP PRN ×2 (17:22→21:15)
[2016-06-08] MEDS ORDERED: PHENERGAN INJ 25 MG IV PRN (17:41)
[2016-06-08] MEDS ORDERED: ZOFRAN INJ 4 MG VIAL IVP PRN (17:41)
[2016-06-08 19:59] VITALS: BMI 25.4
[2016-06-08] MEDS: NS 1000 ML 1,000 ML IV SCH ×2 (21:20→23:23)
[2016-06-08] MEDS: TORADOL 30 MG VIAL IVP PRN (23:25)
[2016-06-09] MEDS: DILAUDID INJ IVP PRN ×3 (01:12→11:47)
[2016-06-09] MEDS: NS 1000 ML 1,000 ML IV SCH ×2 (02:05→10:28)
[2016-06-09 05:18] LABS: BASOPHILS % (AUTO) 0.5 % (0.2-1.0); EOSINOPHILS # (AUTO) 0.1 x10^3/uL (0.0-0.2); EOSINOPHILS % (AUTO) 1.7 % (0.9-2.9); HEMATOCRIT 40.1 % (42.0-54.0); HEMOGLOBIN 13.6 g/dL (13.5-18.0); LYMPHOCYTES # (AUTO) 1.4 X10^3/uL (1.3-2.9); LYMPHOCYTES % (AUTO) 18.3 % (21.0-51.0); MEAN CORPUSCULAR HEMOGLOBIN 30.1 pg (27.0-34.0); MEAN CORPUSCULAR VOLUME 88.5 fL (80.0-100.0); MEAN PLATELET VOLUME 7.4 fL (7.4-11.0); MONOCYTES # (AUTO) 0.7 x10^3/uL (0.3-0.8); MONOCYTES % (AUTO) 9.1 % (0.0-13.0); NEUTROPHILS # (AUTO) 5.4 x10^3/uL (2.2-4.8); NEUTROPHILS % (AUTO) 70.4 % (42.0-75.0); PLATELET COUNT 189 X10^3/uL (150.0-450.0); RED BLOOD COUNT 4.53 X10^6/uL (4.7-6.0); RED CELL DISTRIBUTION WIDTH 13.3 % (11.6-16.5); WHITE BLOOD COUNT 7.6 X10^3/uL (3.6-10.0)
[2016-06-09 05:34] LABS: ALANINE AMINOTRANSFERASE 26 Units/L (12-78); ALBUMIN 3.4 g/dL (3.4-5.0); ALKALINE PHOSPHATASE 63 Units/L (46-116); ASPARTATE AMINO TRANSFERASE 20 Units/L (15-37); BLOOD UREA NITROGEN 22 mg/dL (7-18); CALCIUM 8.4 mg/dL (8.5-10.1); CARBON DIOXIDE 27.1 mmol/L (21-32); CHLORIDE 108 mmol/L (98-107); CREATININE 1.16 mg/dL (0.70-1.30); GLUCOSE 106 mg/dL (65-99); SODIUM 142 mmol/L (136-145); TOTAL PROTEIN 6.2 g/dL (6.4-8.2); eGFR BLACK RACES > 60 (>60); eGFR NON BLACK RACES > 60 (>60)
[2016-06-09] MEDS: TORADOL 30 MG VIAL IVP PRN (08:45)
[2016-06-09] MEDS ORDERED: FLOMAX PO SCH ×2 (09:00→09:17)
[2016-06-09] MEDS ORDERED: FLOMAX PO ONE (09:18)
[2016-06-09] MEDS ORDERED: PROCARDIA XL PO SCH (10:00)
[2016-06-09 12:42] VITALS: BP 129/65
--- NOTE | 2016-06-09 13:32 | DR.CARTERS ---
Short Stay Summary - Short Stay Summary for: Short Stay Summary for Date of:: 06/09/16 - Admission Date Date of Admission: 06/08/16 - Discharge Date Discharge Date: 06/09/16 - Admission Diagnoses (1) Intractable pain Status: Acute (2) Kidney stone Status: Acute (3) Left flank pain Status: Acute (4) Hematuria Status: Acute - Hospital Course Hospital Course: DAY ONE OF HOSPITAL STAY, PATIENT PRESENTED TO THE EMERGENCY ROOM WITH COMPLAINTS OF LEFT FLANK PAIN. PATIENT WAS ADMITTED TO OUR HOSPITAL ON 05/20/16 FOR A RIGHT RENAL STONE. HE HAD LITHOTRIPSY LAST WEEK PER [facility] FOR RIGHT RENAL STONE. PATIENT REPORTED HE HAD BEEN DOING WELL AND HAD RETURNED TO WORK. HE STATED ONE DAY PRIOR TO ADMISSION, HE BEGAN TO HAVE SEVERE LEFT FLANK PAIN. PATIENT HAD ASSOCIATED NAUSEA, BUT NO FEVER OR DYSURIA. HE REPORTED LEFT FLANK PAIN WAS A 10 ON A 1-TO-10 PAIN SCALE. HIS BROUGHT HIM TO THE EMERGENCY ROOM FOR FURTHER EVALUATION. A CT OF ABD/ PELVIS WAS OBTAINED AND REPORTED OBSTRUCTING PROXIMAL LEFT URETERAL STONE MEASURING 2MM WITH HYDRONEPHROSIS OF THE LEFT KIDNEY; PREVIOUSLY IDENTIFIED RIGHT UVJ STONE IS NOT SEEN. PATIENT WAS ADMITTED FOR FURTHER TREATMENT OF PAIN AND IV FLUIDS. DAY TWO OF HOSPITAL STAY, PATIENT WAS SITTING UP IN BED UPON ROUNDS. AT BEDSIDE. HE REPORTED THAT HE HAD NOT PASSED A STONE AND WAS STILL HURTING AT THAT TIME. WE PLANNED TO CONTINUE IV FLUIDS, IV PAIN MEDICATION, FLOMAX, AND START PROCARDIA. A SHORT TIME LATER, PATIENT REPORTED HE HAD PASSED A STONE. THE STONE WAS COLLECTED AND SENT TO THE LAB FOR ANALYSIS. PATIENT REPORTED PAIN WAS RESOLVED AND HE FELT MUCH BETTER. WE PLANNED FOR DISCHARGE. INSTRUCTIONS FOR MEDICATIONS AND FOLLOW UP WERE GIVEN TO PATIENT AND , BOTH VOICED UNDERSTANDING. PATIENT WAS DISCHARGED HOME IN STABLE CONDITION WITH . - Discharge Medications Discharge Medications: Montelukast Sodium [SINGULAIR TAB 10 MG *] 1 tab PO DAILY PRN 05/20/16 Oxycodone/Acet 5 mg/325 mg [PERCOCET 5/325 MG *] 1 tab PO Q6H PRN #56 tab 11/30 - Discharge Plan Disposition: 01 HOME, SELF-CARE Condition: Stable - Follow up/Referrals Follow up/Referrals: Adrian Eastman [Primary Care Provider] - 06/16/16 10:40 am - Instructions Instructions: Renal Colic, [id number], Kidney Stones, [id number], Flank Pain, [id number], Hematuria, Adult Additional Instructions: ACTIVITY TOLERATED. DIET TOLERATED. Forms: Patient Portal
== END 2016-06-09 13:35 | disposition home or self-care (01) ==
LOC: ER 13:55 → MED/SURG 17:37
PROVIDERS: ADMIT Internal Medicine; ATTEND Internal Medicine
DX: N21.1 Calculus in urethra (principal); R52 Pain, unspecified; R10.84 Generalized abdominal pain; R31.9 Hematuria, unspecified
CPT/HCPCS: 36415; 74176; 80053; 81001; 82365; 85025; 94760; 96365; 96374; 96375; 99284; A4216; A4222; G0378; J1170; J1885; J2405; J2550

== ENCOUNTER → 2016-07-28 | Outpatient (CLI) | payer OTHER ==
--- NOTE | 2016-07-30 12:57 | MRI ---
HISTORY: RIGHT WRIST PAIN WITH FLEXION/EXTENSION. EXAM: NON CONTRAST MRI EXAM OF THE RIGHT WRIST. TECHNIQUE: Multisequence and multiplanar T1 and T2 weighted sequences of the right wrist were obtain ed without the administration of IV paramagnetic contrast at 1.5 Janneth. COMPARISON: None available. FINDINGS: There is diffuse inflammation seen throughout the subcutaneous tissues of the dorsum of the wrist \T \ with mild tendinosis and some surrounding fluid involving the 2nd, 3rd, 4th, and 5th common extens or tendon compartments. This is likely related to an inflammatory process or possibly, or an early i nfectious etiology. Please correlate with ESR/CRP levels. Ulnar variance appears neutral and there i s mild proximal carpal row chondromalacia with nonspecific bone marrow edema seen throughout the duncan ate bone. Findings can be seen with early ulnolunate abutment disease (or from chondromalacia). Ther e is no evidence for subchondral collapse of the carpal bones. There is no evidence for an SLAC wris t, DISI, or VISI deformity. There is mild synovial thickening seen within the proximal and mid carpa l rows which would imply an underlying synovitis without focal joint erosion appreciated. The DRUJ i s intact, as is the TFCC complex. No full-thickness tear of the scapholunate or lunotriquetral ligam ent is seen. No other wrist joint injuries or musculoskeletal abnormalities are appreciated on this examination. IMPRESSION: 1. DIFFUSE INFLAMMATION SEEN THROUGHOUT THE SUBCUTANEOUS TISSUES OF THE DORSUM OF THE WRIST \T\ WITH MILD TENDINOSIS AND SOME SURROUNDING FLUID INVOLVING THE 2ND, 3RD, 4TH, AND 5TH COMMON EXTENSOR TEN DON COMPARTMENTS. THIS IS LIKELY RELATED TO AN INFLAMMATORY PROCESS OR POSSIBLY, OR AN EARLY INFECTI OUS ETIOLOGY. PLEASE CORRELATE WITH ESR/CRP. 2. ULNAR VARIANCE APPEARS NEUTRAL AND THERE IS MILD AND MID CARPAL PROXIMAL CARPAL ROW CHONDROMALACI A SEEN. 3. NONSPECIFIC BONE MARROW EDEMA SEEN THROUGHOUT THE LUNATE BONE. FINDINGS CAN BE SEEN WITH EARLY UL NOLUNATE ABUTMENT DISEASE (OR SIMPLY FROM WRIST CHONDROMALACIA). 4. NO OTHER BONE MARROW EDEMA SEEN. NO ACUTE FRACTURES SEEN. 5. MILD SYNOVIAL THICKENING SEEN THROUGHOUT THE WRIST JOINT WHICH CAN BE SEEN WITH A DEVELOPING JEWELL Y SYNOVITIS. PLEASE CORRELATE FOR EARLY FINDINGS OF AN INFLAMMATORY ARTHRITIS. Reported By:
== END | disposition home or self-care (01) ==
LOC: RAD 10:25
PROVIDERS: ATTEND Orthopaedic Surgery
DX: M25.531 Pain in right wrist (principal); R60.1 Generalized edema; M65.88 Other synovitis and tenosynovitis, other site
CPT/HCPCS: 73221

== ENCOUNTER → 2016-09-24 | Outpatient (CLI) | payer OTHER ==
[~2016-09-24] MED LIST: NS 100 ML IV 100 ML IV ONE
--- NOTE | 2016-09-24 11:14 | CT ---
CT abdomen and pelvis with contrast Indication: Right lower quadrant pain Comparison: 06/08/2016 Technique: Multiple axial images of the abdomen and pelvis were obtained from the lung bases to the pubic symph ysis after the administration of IV contrast. Coronal and sagittal reformatted images were also pro vided. Radiation dose reduction techniques were performed utilizing adjustment for MA/kVP based on patient body size. Findings: The lung bases are clear. Multilobulated hypoattenuating lesion within the posterior hepatic segment with multiple tiny round hypoattenuating lesions throughout the liver are most consistent with smal l cyst or potentially biliary hammertoe months. There is minimal intrahepatic bile duct dilatation w ithout extrahepatic dilatation identified. The gallbladder, spleen, pancreas and adrenal glands are normal. Neither kidney demonstrates evidence of, hydronephrosis or mass however, there is a punctate stone within the lower pole the right kidney on coronal image 29. Upper GI tract is without evidenc e of mass or obstruction. Urinary bladder is normal. Prostate gland is normal. The rectum and colon this are within normal limits. The appendix is not visualized. No pelvic free fluid or adenopathy. T he abdominal aorta is normal in caliber with scattered calcified atherosclerotic disease. Small fat containing periumbilical hernia. Moderate degenerative change of the right femoral acetabular joint. Impression: 1. Punctate nonobstructing stone within the lower pole of the right kidney. 2. Stable incidental findings as described above. Reported By:
== END | disposition home or self-care (01) | DRG 392 ==
LOC: RAD 09:04
PROVIDERS: ATTEND Internal Medicine
DX: R10.31 Right lower quadrant pain (principal); N20.0 Calculus of kidney
CPT/HCPCS: 74177; A4222

== ENCOUNTER → 2017-07-04 | Outpatient (CLI) | payer OTHER ==
--- NOTE | 2017-07-04 13:32 | CT ---
Examination: CT of the abdomen and pelvis without contrast. Clinical History: Right flank pain for 3 days, history of stones. Technique: Multiple axial images were obtained from the lung bases down to the pubic symphysis. No or al or intravenous contrast was administered. Dose reduction techniques including automated exposure c ontrol (AEC) and adjustment of mA and kV were utilized. Comparison: 09/24/2016. Findings: The visualized portion of the lung bases is unremarkable. A lack of intravenous contrast limits evaluation of the solid intra-abdominal organs. Scattered small varying sized low-density lesions are seen associated with the liver, essentially unc hanged in appearance when compared with the prior examination, and likely representing tiny benign cy sts. No acute urinary tract obstruction is noted. Tiny punctate nonobstructing calculi are seen associated with the upper and lower pole of the left kidney. No ureteral or bladder calculus is noted. No renal mass or hydronephrosis is noted. The spleen, pancreas, gallbladder and adrenal glands are normal in appearance. The abdominal aorta is mildly calcified and mildly tortuous, but is normal in caliber. The bowel gas pattern is non-obstructive. There is no free air. The colon is within normal limits. The small bowel is grossly unremarkable. The appendix is not visualized. The bladder, prostate and seminal vesicles are within normal limits. No pelvic mass or fluid collection is noted. There is a small stable fat containing ventral hernia noted at the level of the umbilicus, with the a nterior abdominal wall defect measuring approximately 1.4 cm in the craniocaudal dimension. Mild degenerative changes are noted in the spine. No acute osseous abnormality is noted. Impression: 1. No acute urinary tract obstruction is noted. Tiny punctate nonobstructing calculi are seen associa david with the upper and lower pole of the left kidney. No ureteral or bladder calculus is noted. No re nal mass or hydronephrosis is noted. 2. Scattered small varying sized low-density lesions are seen associated with the liver, essentially unchanged in appearance when compared with the prior examination, and likely representing tiny benign cysts. 3. Small fat containing ventral hernia at the level of the umbilicus. Reported By:
== END | disposition home or self-care (01) ==
LOC: RAD 11:28
PROVIDERS: ATTEND Internal Medicine
DX: Z87.442 Personal history of urinary calculi (principal); R10.84 Generalized abdominal pain; K76.9 Liver disease, unspecified; K43.9 Ventral hernia without obstruction or gangrene
CPT/HCPCS: 74176